=== PATIENT | female | born 1995 | race American Indian/Alaskan Native ===

== ENCOUNTER 2019-05-29 20:10 | Emergency (ER) | payer SELFPAY ==
[2019-05-29 20:17] VITALS: BP 107/66
--- NOTE | 2019-05-29 22:01 | Emergency Department Report ---
ED ENT HPI - General Chief complaint: Sore Throat Stated complaint: FEVER,SOAR THROAT Time Seen by Provider: 05/29/19 21:57 Source: patient Mode of arrival: Ambulatory Limitations: No Limitations - History of Present Illness Initial comments: 24-year-old -[place] female presents to the emergency room for 1 day of sore throat. Patient also complains of hot and cold flashes. Patient reported headache that has resolved. Patient states is a started yesterday with worsening pain to swallow. Patient is from [place] and does not have a primary care provider. Patient reports that he took Mucinex. Patient denies any other past medical history. MD complaint: sore throat Onset/Timin -: days(s) Location: throat Severity scale (0 -10): 4 Quality: sharp Consistency: intermittent Worsens with: swallowing Associated Symptoms: fever - Related Data Previous Rx's Medication Instructions Recorded Last Taken Type Amoxicillin [Amoxicillin TAB] 875 mg PO BID 10 Days #20 tablet 05/29/19 Unknown Rx Allergies Allergy/AdvReac Type Severity Reaction Status Date / Time No Known Allergies Allergy Verified 05/29/19 20:13 ED Dental HPI - General Chief complaint: Sore Throat Stated complaint: FEVER,SOAR THROAT Time Seen by Provider: 05/29/19 21:57 Source: patient Mode of arrival: Ambulatory Limitations: No Limitations - Related Data Previous Rx's Medication Instructions Recorded Last Taken Type Amoxicillin [Amoxicillin TAB] 875 mg PO BID 10 Days #20 tablet 05/29/19 Unknown Rx Allergies Allergy/AdvReac Type Severity Reaction Status Date / Time No Known Allergies Allergy Verified 05/29/19 20:13 ED Review of Systems ROS: Stated complaint: FEVER,SOAR THROAT Other details as noted in HPI Comment: All other systems reviewed and negative ED Past Medical Hx - Medications Home Medications: Home Medications Medication Instructions Recorded Confirmed Last Taken Type Amoxicillin [Amoxicillin TAB] 875 mg PO BID 10 Days #20 tablet 05/29/19 Unknown Rx ED Physical Exam - General Limitations: No Limitations General appearance: alert, in no apparent distress - Head Head exam: Present: atraumatic, normocephalic - Eye Eye exam: Present: normal appearance - Expanded ENT Exam Expanded Throat exam: Positive: tonsillar erythema, tonsillomegaly, tonsillar exudate - Neck Neck exam: Present: full ROM, lymphadenopathy - Respiratory Respiratory exam: Present: normal lung sounds bilaterally - Cardiovascular Cardiovascular Exam: Present: tachycardia - Neurological Exam Neurological exam: Present: alert, oriented X3 - Psychiatric Psychiatric exam: Present: normal affect, normal mood - Skin Skin exam: Present: warm, dry, intact, normal color. Absent: rash ED Course Vital Signs 05/29/19 05/29/19 20:15 20:17 Temperature 98.9 F Pulse Rate 117 H Respiratory 16 Rate Blood Pressure 107/66 O2 Sat by Pulse 97 Oximetry ED Medical Decision Making - Medical Decision Making 24-year-old -[place] female presents to the emergency room for 1 day of sore throat. Patient also complains of hot and cold flashes. Patient reported headache that has resolved. Patient states is a started yesterday with worsening pain to swallow. Patient is from [place] and does not have a primary care provider. Patient reports that he took Mucinex. Patient denies any other past medical history. Patient will be treated for strep Critical care attestation.: If time is entered above; I have spent that time in minutes in the direct care of this critically ill patient, excluding procedure time. ED Disposition Clinical Impression: Strep pharyngitis Disposition: DC-01 TO HOME OR SELFCARE Is pt being admited?: No Does the pt Need Aspirin: No Condition: Stable Instructions: Strep Throat (ED) Additional Instructions: Complete your antibiotics as prescribed. Take [id number] ibuprofen 600 mg which is 3 200 mg caplets. You can also take acetaminophen which is Tylenol 500 mg you can take 2 tablets every 4-6 hours. Prescriptions: Amoxicillin [Amoxicillin TAB] 875 mg PO BID 10 Days #20 tablet Referrals: [facility] [Provider Group] - 3-5 Days
== END 2019-05-29 22:03 | disposition home or self-care (01) ==
LOC: ED 20:10
DX: J02.0 Streptococcal pharyngitis (principal)
CPT/HCPCS: 99282